=== PATIENT | female | born 1995 | race Caucasian/White ===

== ENCOUNTER 2019-04-19 14:53 | Emergency (ER) | payer OTHER ==
[~2019-04-19] VITALS: Wt 79.4 kg
[2019-04-19 15:17] LABS: BILIRUBIN NEGATIVE (NEGATIVE); BLOOD 1+ (NEGATIVE); CLARITY SL CLOUDY (CLEAR); COLOR YELLOW (YELLOW); GLUCOSE NEGATIVE (NEGATIVE); KETONE NEGATIVE (NEGATIVE); LEUKO ESTERASE NEGATIVE (NEGATIVE); NITRITE NEGATIVE (NEGATIVE); PH 5.5 (5.0-9.0); SPECIFIC GRAVITY >= 1.030 (1.005-1.030)
[2019-04-19 15:39] LABS: BACTERIA 1+; RBC 0-2 rbc/hpf (0-2)
[2019-04-19 15:51] LABS: BASO # 0.1 10*3/uL (0.0-0.1); BASO % 0.7 % (0.0-1.0); EOS # 0.2 10*3/uL (0.0-0.4); EOS % 2.9 % (1.0-4.0); HEMATOCRIT 34.9 % (37.0-47.0); HEMOGLOBIN 11.2 g/dl (12.0-16.0); LYMPH % 43.3 % (27.0-41.0); MEAN CELL VOLUME 88.8 fl (81.0-99.0); MEAN CORPUSCULAR HGB 28.5 pg (27.0-31.0); MEAN CORPUSCULAR HGB CONC 32.1 g/dl (33.0-37.0); MEAN PLATELET VOLUME 11.6 fl (9.6-12.3); MONO # 0.4 10*3/uL (0.1-1.0); MONO % 6.4 % (3.0-9.0); NEUT # 3.2 10*3/uL (2.3-7.9); NEUT % 46.6 % (47.0-73.0); PLATELET COUNT AUTOMATED 234 10*3/uL (130-400); RED BLOOD COUNT 3.93 10*6/uL (4.10-5.10); RED CELL DISTRI WIDTH 14.5 % (0-14.5); WHITE BLOOD COUNT 6.8 10*3/uL (4.8-10.8)
[2019-04-19 16:07] LABS: ALBUMIN 3.9 gm/dl (3.1-4.5); ALKALINE PHOSPHATASE 72 U/L (45-117); BUN 12 mg/dl (7-24); CHLORIDE 113 mmol/L (98-107); CREATININE 0.87 mg/dL (0.55-1.02); POTASSIUM 3.8 mmol/L (3.5-5.1); SGOT/AST 8 IU/L (3-35); SGPT/ALT 13 U/L (12-78); SODIUM 141 mmol/L (136-145); TOTAL PROTEIN 7.9 gm/dL (6.4-8.2)
== END 2019-04-19 16:32 | disposition home or self-care (01) ==
LOC: ED 14:53
PROVIDERS: Nurse Practitioner Family
DX: N93.9 Abnormal uterine and vaginal bleeding, unspecified (principal); M54.5 Low back pain; R10.2 Pelvic and perineal pain

== ENCOUNTER 2019-05-29 14:04 | Emergency (ER) | payer OTHER ==
[~2019-05-29] VITALS: Ht 165.1 cm; Wt 100.7 kg
== END 2019-05-29 15:17 | disposition home or self-care (01) ==
LOC: ED 14:04
DX: D17.1 Benign lipomatous neoplasm of skin and subcutaneous tissue of trunk (principal)

== ENCOUNTER 2019-08-15 04:35 | Emergency (ER) | payer OTHER ==
[~2019-08-15] VITALS: Ht 167.6 cm; Wt 110.7 kg
[2019-08-15 06:01] LABS: BASO % 0.3 % (0.0-1.0); EOS # 0.2 10*3/uL (0.0-0.4); EOS % 1.6 % (1.0-4.0); HEMATOCRIT 34.6 % (37.0-47.0); HEMOGLOBIN 11.3 g/dl (12.0-16.0); LYMPH # 3.3 10*3/uL (1.3-4.4); LYMPH % 30.5 % (27.0-41.0); MEAN CELL VOLUME 85.6 fl (81.0-99.0); MEAN CORPUSCULAR HGB CONC 32.7 g/dl (33.0-37.0); MEAN PLATELET VOLUME 11.1 fl (9.6-12.3); MONO # 0.6 10*3/uL (0.1-1.0); MONO % 5.7 % (3.0-9.0); NEUT # 6.7 10*3/uL (2.3-7.9); NEUT % 61.3 % (47.0-73.0); PLATELET COUNT AUTOMATED 298 10*3/uL (130-400); RED BLOOD COUNT 4.04 10*6/uL (4.10-5.10); RED CELL DISTRI WIDTH 13.3 % (0-14.5); WHITE BLOOD COUNT 10.9 10*3/uL (4.8-10.8)
[2019-08-15 06:12] LABS: BUN 18 mg/dl (7-24); CHLORIDE 112 mmol/L (98-107); CREATININE 0.95 mg/dL (0.55-1.02); POTASSIUM 3.6 mmol/L (3.5-5.1); SODIUM 142 mmol/L (136-145)
[2019-08-15] MEDS ORDERED: ZOFRAN4 MG PO (07:08)
[2019-08-15] MEDS ORDERED: Motrin,Rufen800 MG PO (07:08)
== END 2019-08-15 07:22 | disposition home or self-care (01) ==
LOC: ED 04:35
PROVIDERS: Emergency Medicine Emergency Medical Services
DX: G40.909 Epilepsy, unspecified, not intractable, without status epilepticus (principal)

== ENCOUNTER 2020-01-20 09:29 | Emergency (ER) | payer OTHER ==
[~2020-01-20] VITALS: Ht 165.1 cm; Wt 104.3 kg
[~2020-01-20 09:29] MED LIST: Motrin,Rufen800 MG PO; ZOFRAN4 MG PO
[2020-01-20 10:53] LABS: BILIRUBIN NEGATIVE (NEGATIVE); BLOOD 1+ (NEGATIVE); CLARITY SL CLOUDY (CLEAR); COLOR YELLOW (YELLOW); GLUCOSE NEGATIVE (NEGATIVE); KETONE NEGATIVE (NEGATIVE); LEUKO ESTERASE NEGATIVE (NEGATIVE); NITRITE NEGATIVE (NEGATIVE); UROBILINOGEN 0.2 E.U./dl (0.2-1.0)
[2020-01-20 10:57] LABS: BASO % 0.3 % (0.0-1.0); EOS % 0.3 % (1.0-4.0); HEMATOCRIT 39.5 % (37.0-47.0); LYMPH # 1.1 10*3/uL (1.3-4.4); LYMPH % 15.6 % (27.0-41.0); MEAN CELL VOLUME 90.6 fl (81.0-99.0); MEAN CORPUSCULAR HGB 29.1 pg (27.0-31.0); MEAN CORPUSCULAR HGB CONC 32.2 g/dl (33.0-37.0); MEAN PLATELET VOLUME 11.4 fl (9.6-12.3); MONO # 0.6 10*3/uL (0.1-1.0); MONO % 7.8 % (3.0-9.0); NEUT # 5.3 10*3/uL (2.3-7.9); NEUT % 75.7 % (47.0-73.0); PLATELET COUNT AUTOMATED 187 10*3/uL (130-400); RED BLOOD COUNT 4.36 10*6/uL (4.10-5.10); RED CELL DISTRI WIDTH 12.9 % (0-14.5); WHITE BLOOD COUNT 7.1 10*3/uL (4.8-10.8)
[2020-01-20 11:11] LABS: ALKALINE PHOSPHATASE 87 U/L (45-117); BUN 12 mg/dl (7-24); CHLORIDE 109 mmol/L (98-107); CREATININE 1.01 mg/dL (0.55-1.02); LIPASE 195 U/L (73-393); POTASSIUM 3.7 mmol/L (3.5-5.1); SGOT/AST 8 IU/L (3-35); SGPT/ALT 16 U/L (12-78); SODIUM 136 mmol/L (136-145); TOTAL PROTEIN 8.8 gm/dL (6.4-8.2)
== END 2020-01-20 11:48 | disposition home or self-care (01) ==
LOC: ED 09:29
PROVIDERS: Physician Assistant
DX: R39.15 Urgency of urination (principal); R31.9 Hematuria, unspecified; R42 Dizziness and giddiness; R50.9 Fever, unspecified; Z97.5 Presence of (intrauterine) contraceptive device

== ENCOUNTER 2021-03-09 11:01 | Emergency (ER) | payer OTHER ==
[~2021-03-09] VITALS: Ht 165.1 cm; Wt 131.5 kg
[2021-03-09] MEDS ORDERED: ZOFRAN4 MG PO (12:02)
== END 2021-03-09 12:30 | disposition home or self-care (01) ==
LOC: ED 11:01
DX: U07.1 COVID-19 (principal)